=== PATIENT | male | born 1945 | race African-American/Black ===

== ENCOUNTER 2016-08-01 16:31 | Inpatient (IN) | payer MEDICARE, OTHER ==
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
--- NOTE | ~2016-08-01 | DS ---
Discharge Summary [facility] [address] [place]. [address] NAME: MARTY WATSON : 45 STATUS : DIS IN PAT#: [id number] AGE: 71 ADM/REG DATE : 08/01/16 MR#: [id number] REPORT SERV DATE: 08/07/16 DICTATED BY: VINNIE VASQUEZ DATE: 08/06/16 REPORT STATUS : Draft TRANSCRIBED BY: MODL DATE: 08/06/16 ADMISSION DATE: 08/01/2016 DISCHARGE DATE: HISTORY OF PRESENT ILLNESS: The patient is a 71-year-old. He will be discharged home on 08/07/2016. He was admitted with a Klebsiella pneumonia. DISCHARGE DIAGNOSES: 1. Urinary tract infection with sepsis only sensitive to IV antibiotics. 2. Closed head injury with a number of contractures of the lower and upper extremities. 3. The patient has a number of pressure ulcers, nonhealing/left hip, right hip, and right lateral malleolus. 4. Malnutrition. 5. He has a feeding tube. 6. Seizure disorder. HOSPITAL COURSE: The patient came in to receive IV antibiotics. On the second day, rapid response was called when the patient had a mucus plug. Once he was oxygenated and suctioned, his O2 saturation increased. Blood pressure returned. He was given IV fluids and support, and he remained on the floor. Had no other complications since then. His discharge medicines are his albuterol unit dose that he will receive twice a day and then every four as needed. MEDICINES: He is on Keppra 500 mg/teaspoon and he received 7.5 mg via his PEG three times a day; trazodone 100 mg at bedtime; MiraLAX 17 g a day; Tylenol as needed; baclofen 10 mg four times a day; latanoprost 0.005% one drop to the left eye daily for his glaucoma; lisinopril 5 a day; Ativan 1 mg at 0900 hours, 1300 hours, 1700 hours, and 2100 hours and 10 mg at bedtime; Protonix 40 mg via the PEG daily; Dilantin 125 mg/teaspoon before meals via the PEG three times a day; oxycodone 15 mg four times a day and 30 at midnight. Wound Care was consulted and he did have two wound VACs placed. Upon his discharge, the wound VACs will be removed and the continued [facility] who had him prior to admission will be picking him back up and will replace the wound VACs in the home. We will plan on making a visit to see him in a week. LABORATORY DATA: On 08/04/2016, BUN was 10, creatinine was 0.36, glucose 91, white blood cell count 8.1, H and H 27.9 and 9.2. TM/MODL Vinnie Vasquez M.D. Discharge Summary [address] [address] NAME: MARTY WATSON : 45 STATUS : DIS IN PAT#: [id number] AGE: 71 ADM/REG DATE : 08/01/16 MR#: [id number] REPORT SERV DATE: 08/07/16 DICTATED BY: VINNIE VASQUEZ DATE: 08/06/16 REPORT STATUS : Draft TRANSCRIBED BY: MODL DATE: 08/06/16 / [id number] CC: Vinnie Vasquez M.D.
[~2016-08-01 16:31] MED LIST: *UNABLE3; ACET500CAP PEG; AT25 PEG; ATV1 PEG; IODOSORB TOP; KEPPRAUDL PEG; LIOR10 PEG; LOP100 PEG; MIRALAXPKT PEG; MONODOX100 MG PO; MOTRIN IB200 MG PEG; NORV10 PO; NYS500UDL PEG; PB60 PEG; PHENYUDL PEG; PRIN5 PEG; PROTONIX PEG; PROVENTSOL INH; TRANSSCOP TOP; TRAZ100 PEG; ULTRAM50 PEG; XALAT OPH; ZANTAC 150 PEG; [UNRECOGNIZED DRUG - SUPPLY] TOP
[2016-08-01] MEDS ORDERED: PROTONIX PEG (17:36)
[2016-08-01] MEDS ORDERED: KEPPRAUDL PEG (17:36)
[2016-08-01] MEDS ORDERED: PHENY125S PEG (17:36)
[2016-08-01] MEDS ORDERED: ZESTRIL5 MG PEG (17:37)
[2016-08-01] MEDS ORDERED: LIOR10 PEG (17:37)
[2016-08-01] MEDS ORDERED: ROXICODONE30 MG PEG (17:38)
[2016-08-01] MEDS ORDERED: ATIVAN2 MG PEG (17:38)
[2016-08-01] MEDS ORDERED: ROXICODONE15 MG PEG (17:38)
[2016-08-01] MEDS ORDERED: ATV1 PEG (17:39)
[2016-08-01] MEDS ORDERED: MIRALAX POWDER1 PKT PEG (17:39)
[2016-08-01] MEDS ORDERED: ALBUTEROL0.083 % INH (17:40)
[2016-08-01] MEDS ORDERED: XALAT OPH (17:41)
[2016-08-01] MEDS ORDERED: TRAZ100 PEG (17:41)
[2016-08-01] MEDS ORDERED: 8 HOUR650 MG PEG (17:41)
[2016-08-02 05:14] LABS: BASOPHILS 0.9 %; BASOPHILS ABSOLUTE 0.06 10/3/uL (0.0-0.16); EOSINOPHILS 4.9 %; EOSINOPHILS ABSOLUTE 0.31 10/3/uL (0.0-0.53); HEMATOCRIT 26.8 % (40.0-51.0); IMMATURE GRANULOCYTES 0.2 %; IMMATURE GRANULOCYTES ABSOLUTE 0.01 10/3/uL (0.0-0.11); LYMPHOCYTES 34.9 %; LYMPHOCYTES ABSOLUTE 2.22 10/3/uL (0.67-4.30); MEAN CORPUS HGB CONC 33.6 g/dL (32.0-36.0); MEAN CORPUSCULAR HEMOGLOB 26.5 pg (26.0-34.0); MEAN CORPUSCULAR VOLUME 79.1 fL (80-100); MEAN PLATELET VOLUME 8.8 fL (9.2-13.0); MONOCYTES 11.1 %; MONOCYTES ABSOLUTE 0.71 10/3/uL (0.21-1.20); NEUTROPHILS ABSOLUTE 3.06 10/3/uL (2.02-8.40); RBC DISTRIBUTION WIDTH 16.7 % (12.0-16.0); RED CELL COUNT 3.39 10/6/uL (4.7-6.1); WHITE BLOOD CELLS 6.4 10/3/uL (4.5-10.5)
[2016-08-02 05:23] LABS: BUN (BLOOD UREA NITROGEN) 10 MG/DL (6-23); CALCIUM, SERUM 8.2 MG/DL (8.5-10.4); CHLORIDE, SERUM 97 MMOL/L (96-112); CO2 (CARBON DIOXIDE) 29 MMOL/L (24-34); CREATININE 0.34 MG/DL (0.70-1.30); GFR AFRICAN AMERICAN 148 ML/MIN (>=60); GFR NON AFRICAN AMERICAN 128 ML/MIN (>=60); GLUCOSE, SERUM 94 MG/DL (60-99); POTASSIUM, SERUM 3.8 MMOL/L (3.5-5.3)
[2016-08-02 05:24] LABS: SODIUM, SERUM 134 MMOL/L (135-148)
[2016-08-02 05:31] LABS: MANUAL DIFF NO %; PLATELET COUNT 431 10/3/uL (150-400)
[2016-08-03 05:19] LABS: BUN (BLOOD UREA NITROGEN) 11 MG/DL (6-23); CALCIUM, SERUM 8.6 MG/DL (8.5-10.4); CHLORIDE, SERUM 99 MMOL/L (96-112); CREATININE 0.32 MG/DL (0.70-1.30); GFR AFRICAN AMERICAN 152 ML/MIN (>=60); GFR NON AFRICAN AMERICAN 131 ML/MIN (>=60); GLUCOSE, SERUM 97 MG/DL (60-99); POTASSIUM, SERUM 4.2 MMOL/L (3.5-5.3); SODIUM, SERUM 133 MMOL/L (135-148)
[2016-08-03 05:20] LABS: CO2 (CARBON DIOXIDE) 24 MMOL/L (24-34)
[2016-08-04 05:56] LABS: BASOPHILS 0.4 %; BASOPHILS ABSOLUTE 0.03 10/3/uL (0.0-0.16); EOSINOPHILS 1.5 %; EOSINOPHILS ABSOLUTE 0.12 10/3/uL (0.0-0.53); HEMATOCRIT 27.9 % (40.0-51.0); HEMOGLOBIN 9.2 g/dL (13.6-17.8); LYMPHOCYTES 35.4 %; LYMPHOCYTES ABSOLUTE 2.88 10/3/uL (0.67-4.30); MEAN CORPUSCULAR HEMOGLOB 26.2 pg (26.0-34.0); MEAN CORPUSCULAR VOLUME 79.5 fL (80-100); MEAN PLATELET VOLUME 9.2 fL (9.2-13.0); MONOCYTES 16.5 %; MONOCYTES ABSOLUTE 1.34 10/3/uL (0.21-1.20); NEUTROPHILS 46.2 %; NEUTROPHILS ABSOLUTE 3.77 10/3/uL (2.02-8.40); PLATELET COUNT 468 10/3/uL (150-400); RBC DISTRIBUTION WIDTH 16.7 % (12.0-16.0); RED CELL COUNT 3.51 10/6/uL (4.7-6.1); WHITE BLOOD CELLS 8.1 10/3/uL (4.5-10.5)
[2016-08-04 06:05] LABS: MANUAL DIFF NO %
[2016-08-04 06:24] LABS: BUN (BLOOD UREA NITROGEN) 10 MG/DL (6-23); CALCIUM, SERUM 8.4 MG/DL (8.5-10.4); CHLORIDE, SERUM 98 MMOL/L (96-112); CO2 (CARBON DIOXIDE) 27 MMOL/L (24-34); CREATININE 0.36 MG/DL (0.70-1.30); GFR AFRICAN AMERICAN 145 ML/MIN (>=60); GFR NON AFRICAN AMERICAN 125 ML/MIN (>=60); GLUCOSE, SERUM 91 MG/DL (60-99); POTASSIUM, SERUM 3.8 MMOL/L (3.5-5.3); SODIUM, SERUM 135 MMOL/L (135-148)
[2016-08-07 05:19] LABS: BASOPHILS 0.5 %; BASOPHILS ABSOLUTE 0.05 10/3/uL (0.0-0.16); EOSINOPHILS 1.3 %; EOSINOPHILS ABSOLUTE 0.14 10/3/uL (0.0-0.53); HEMATOCRIT 24.3 % (40.0-51.0); HEMOGLOBIN 7.9 g/dL (13.6-17.8); IMMATURE GRANULOCYTES 0.3 %; IMMATURE GRANULOCYTES ABSOLUTE 0.03 10/3/uL (0.0-0.11); LYMPHOCYTES 18.3 %; LYMPHOCYTES ABSOLUTE 1.93 10/3/uL (0.67-4.30); MANUAL DIFF NO %; MEAN CORPUS HGB CONC 32.5 g/dL (32.0-36.0); MEAN CORPUSCULAR HEMOGLOB 26.1 pg (26.0-34.0); MEAN CORPUSCULAR VOLUME 80.2 fL (80-100); MEAN PLATELET VOLUME 8.6 fL (9.2-13.0); MONOCYTES ABSOLUTE 1.06 10/3/uL (0.21-1.20); NEUTROPHILS 69.6 %; NEUTROPHILS ABSOLUTE 7.35 10/3/uL (2.02-8.40); PLATELET COUNT 403 10/3/uL (150-400); RBC DISTRIBUTION WIDTH 16.3 % (12.0-16.0); RED CELL COUNT 3.03 10/6/uL (4.7-6.1); WHITE BLOOD CELLS 10.6 10/3/uL (4.5-10.5)
[2016-08-07 05:34] LABS: CALCIUM, SERUM 8.2 MG/DL (8.5-10.4); CHLORIDE, SERUM 102 MMOL/L (96-112); CO2 (CARBON DIOXIDE) 29 MMOL/L (24-34); GFR AFRICAN AMERICAN 139 ML/MIN (>=60); GFR NON AFRICAN AMERICAN 120 ML/MIN (>=60); POTASSIUM, SERUM 3.4 MMOL/L (3.5-5.3); SODIUM, SERUM 139 MMOL/L (135-148)
[2016-08-07 05:40] LABS: BUN (BLOOD UREA NITROGEN) 6 MG/DL (6-23); GLUCOSE, SERUM 119 MG/DL (60-99)
== END 2016-08-07 16:15 | disposition home health service (06) | DRG 871 ==
LOC: 4EA 16:31
PROVIDERS: Internal Medicine Geriatric Medicine
DX: A41.9 Sepsis, unspecified organism (principal); L89.214 Pressure ulcer of right hip, stage 4; E44.0 Moderate protein-calorie malnutrition; S09.8XXA Other specified injuries of head, initial encounter; L89.224 Pressure ulcer of left hip, stage 4; N39.0 Urinary tract infection, site not specified; Z93.1 Gastrostomy status; R13.10 Dysphagia, unspecified; G40.909 Epilepsy, unspecified, not intractable, without status epilepticus; Z68.1 Body mass index [BMI] 19.9 or less, adult; B96.1 Klebsiella pneumoniae [K. pneumoniae] as the cause of diseases classified elsewhere
CPT/HCPCS: 36600; 74230; 80048; 80170; 82330; 82803; 82947; 84132; 84295; 85014; 85025; 92611-GN; 94640; A9270-GY; C9113; G8996-CN-GN; G8997-CN-GN; G8998-CN-GN; J1580

== ENCOUNTER 2016-08-29 22:44 | Inpatient (IN) | payer MEDICARE, OTHER ==
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
--- NOTE | ~2016-08-29 | OP ---
Record Of Operation [facility] [address] [place]. [address] NAME: MARTY WATSON : 45 STATUS : ADM IN [facility]#: [id number] AGE: 71 ADM/REG DATE : 08/30/16 MR#: [id number] REPORT SERV DATE: 08/30/16 DICTATED BY: KEVIN QUEVEDO DATE: 08/30/16 REPORT STATUS : Draft TRANSCRIBED BY: MODL DATE: 08/30/16 DATE OF PROCEDURE: 08/29/2016 PROCEDURE: Central line placement. INDICATION: Hypotensive shock and septic shock. ANESTHETIC: 1% lidocaine. ANTISEPTIC: ChloraPrep. PROCEDURE IN DETAIL: The patient is a severely ill 71-year-old cachectic male, who is wasted with failure to thrive, presented here with septic shock. Family states they want everything done and the patient is a full code. The patient is extremely hypotensive; multiple attempts failed to obtain peripheral IV access. I was asked to place a central line, where I was forced to place a central line. Selected his right subclavian as the initial site for placement given the patient has extreme cachexia, this is difficult and high risk. This area was accessed with a good blood flow to the right subclavian vein. However, every time the patient would have a respiration, blood flow would cease. I was unable to thread the guidewire here I think due to the patient's extreme cachectic physique as well as volume status. Given the difficulty of threading the guidewire here, right IJ was selected as a site of insertion. The internal jugular was actually visible during respirations of the patient. When the patient inspired, his right IJ would disappear. When he had expiratory portion of restorations, the right IJ would appear during expiratory respiration, the right IJ was cannulated with the finer needle with good nonpulsatile blood flow. However, is unable to thread the guidewire and a second attempt was made with a good nonpulsatile blood flow. The guidewire threaded with ease and using Seldinger technique, the line was advanced to [address] with two simple sutures and sterile dressing was then applied and sterile drape was removed. No immediate complications arose. No air aspiration during this, however, postop chest x-ray revealed a moderate size right pneumothorax. No chest x-ray done prior, so my suspicion is this is iatrogenic although the patient does have tenuous respiratory status with hypertension and some hypoxia on admission, so it is possible that this pneumothorax was present on admission. Once the pneumothorax was realized, a right pneumothorax was placed with resolution of the pneumothorax on post chest x-ray. See procedure detail for chest tube placement for full details of this procedure. NIMISHA/JOVAN Kevin Quevedo DO / [id number] Record Of Operation [address] [address] NAME: MARTY WATSON : 45 STATUS : ADM IN [facility]#: [id number] AGE: 71 ADM/REG DATE : 08/30/16 MR#: [id number] REPORT SERV DATE: 08/30/16 DICTATED BY: KEVIN QUEVEDO DATE: 08/30/16 REPORT STATUS : Draft TRANSCRIBED BY: JOVAN DATE: 08/30/16 CC: Jas Farrell MD
--- NOTE | ~2016-08-29 | HP ---
History And Physical [place] [id number] [facility] [place]. [address] NAME: MARTY WATSON : 45 STATUS : ADM IN [facility]#: [id number] AGE: 71 ADM/REG DATE : 08/30/16 MR#: [id number] REPORT SERV DATE: 08/30/16 DICTATED BY: SANTINO YANES DATE: 08/30/16 REPORT STATUS : Draft TRANSCRIBED BY: JOVAN DATE: 08/30/16 DATE OF ADMISSION: 08/30/2016 CHIEF COMPLAINT: Not himself. 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 The patient was recently in the hospital in 07/2016 with recurrent urinary tract infection, as well as Klebsiella pneumonia. At that time, he had a wound VAC placed for his decubitus ulcer and he was discharged home toward the end of July. Since that time, per the niece, he has done well and has been at his baseline at home. She states that his baseline consists of some grunts and moans as attempts to communicate, but otherwise that is his neurologic baseline. She notes that over the last couple of days, she has noticed an increase in the amount of secretions that he has had and she has had to suction him quite frequently. Normally, she says he is able to cough and has a strong cough, and is able to produce the sputum. However, over the last couple of days, she says cough has been very weak and he has been unable to clear secretions without the help of her frequent suctioning. She notes that he seems to be generally more weak over the last couple of days as well. She has not noted any fevers, chills, or sweats. She has not noticed any other changes. On arrival here to the emergency room, he was found to be hypotensive despite IV fluids and had to have vasopressor started in the emergency room. During central line placement, he developed an iatrogenic pneumothorax and had a chest tube placed as well. He is now admitted to the ICU for further management. PAST MEDICAL HISTORY: 1. 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 2. Seizure disorder. 3. Hypertension. 4. History of recurrent urinary tract infections. 5. Glaucoma. 6. Status post G-tube placement. 7. History of chronic decubitus ulcers. ALLERGIES: NO KNOWN DRUG ALLERGIES. HOME MEDICATIONS: 1. Keppra 750 mg p.o. three times daily. 2. Dilantin 500 mg three times daily. 3. Ativan 2 mg daily as needed. 4. Ativan 1 mg p.o. four times daily. 5. Roxicodone 15 mg p.o. five times a day as needed. 6. Protonix 40 mg p.o. twice daily. 7. Lisinopril 5 mg p.o. daily. 8. Baclofen 10 mg p.o. four times daily. History And Physical [address] [address] NAME: MARTY WATSON : 45 STATUS : ADM IN [facility]#: [id number] AGE: 71 ADM/REG DATE : 08/30/16 MR#: [id number] REPORT SERV DATE: 08/30/16 DICTATED BY: SANTINO YANES DATE: 08/30/16 REPORT STATUS : Draft TRANSCRIBED BY: JOVAN DATE: 08/30/16 9. Tylenol 325 mg twice daily as needed. SOCIAL HISTORY: Lives with his niece, who is his power of managing attorney. No tobacco, alcohol, or IV drug abuse. FAMILY HISTORY: Per the niece, negative for coronary artery disease. REVIEW OF SYSTEMS: A 10-point review of systems is negative except as mentioned in the HPI. PHYSICAL EXAMINATION: VITAL SIGNS: Temperature 95.4, heart rate 88, respiratory rate 24, blood pressure 92/52. GENERAL: Elderly chronically ill-appearing gentleman. HEENT: Pupils equal, round, and reactive to light. Extraocular movements intact. Oropharynx clear. Dry mucous membranes. NECK: Supple. Nontender. No lymphadenopathy. No thyromegaly. No jugular venous distention. LUNGS: Coarse breath sounds bilaterally. CARDIOVASCULAR: Regular rate and rhythm. No murmurs, rubs, or gallops. ABDOMEN: Soft, nontender, nondistended. Positive bowel sounds. No hepatosplenomegaly. EXTREMITIES: Cachectic. No cyanosis, clubbing, or edema. NEURO: Minimally responsive. Moans at times. Otherwise, cranial nerves appear intact. PSYCH: Unable to assess. LABS AND IMAGING: Urinalysis with large leukocyte esterase, 68 white blood cells, many bacteria. Lactate 1.4. CBC with white count of 47,000 with 97% neutrophils. Blood gas with pH of 7.35, pCO2 of 58, PO2 of 47 on 100% FiO2. Metabolic profile, remarkable for procalcitonin of 1.1. Sodium of 129, chloride of 91, BUN of 38, creatinine of 0.8. 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 1. Acute hypoxic respiratory failure. Shortly after arrival to the ICU, the patient's respiratory status continued to decline. His oxygenation worsened and he was requiring a nonrebreather 100% and only had a PO2 of 47 on this. Given this and his inability to protect his airway and clear his secretions, I elected to go ahead and intubate the patient and place him on mechanical ventilation. See handwritten intubation note in the patient's record. I will continue ventilator management. We will get a postintubation ABG and titrate his ventilator as appropriate. We will also get a followup chest x-ray following intubation. We will use Precedex and fentanyl as needed for sedation and analgesia. While on the ventilator, we will provide daily awakening trials. 2. Pneumonia, likely either aspiration pneumonia versus hospital-acquired pneumonia given his recent hospitalization. Empirically, I will place him on vancomycin and Zosyn. We will get a sputum culture as well as blood cultures x2. We will tailor his antibiotics appropriately based on his sputum culture. History And Physical [address] [place]. [address] NAME: MARTY WATSON : 45 STATUS : ADM IN [facility]#: [id number] AGE: 71 ADM/REG DATE : 08/30/16 MR#: [id number] REPORT SERV DATE: 08/30/16 DICTATED BY: SANTINO YANES DATE: 08/30/16 REPORT STATUS : Draft TRANSCRIBED BY: MODL DATE: 08/30/16 3. Septic shock. Currently, the patient is requiring Levophed drip. I will add a vasopressin drip in an attempt to decrease his Levophed dose and we will also provide more IV fluid hydration, as the patient appears to be intravascularly volume depleted. Continue antibiotics as above. Repeat lactic acid level in the morning. 4. Iatrogenic pneumothorax. The patient's lung was reexpanded following chest tube placement. We will follow up postintubation chest x-ray, keep chest tube to suction for now, and monitor for resolution of pneumothorax. 5. History of seizures. We will continue the patient's home Keppra. 6. Chronic decubitus ulcer. We will continue wound VAC and get Wound Care to see the patient. 7. The patient remains full code. 8. The patient is on heparin for deep vein thrombosis prophylaxis and Protonix for gastrointestinal prophylaxis. Total critical care time spent on this patient not including endotracheal intubation was 40 minutes. ROSENDA/JOVAN Santino Yanes MD / [id number] CC: Santino Yanes MD
--- NOTE | ~2016-08-29 | DS ---
Discharge Summary [facility] [address] [place] [place]. [address] NAME: MARTY WATSON : 45 STATUS : DIS IN PAT#: [id number] AGE: 71 ADM/REG DATE : 08/30/16 MR#: [id number] REPORT SERV DATE: 10/10/16 DICTATED BY: VINNIE TAM DATE: 10/01/16 REPORT STATUS : Draft TRANSCRIBED BY: MODL DATE: 10/01/16 Data Collection from hospitalization DISCHARGE DIAGNOSES: 1. Respiratory failure requiring intubation. 2. Sepsis. 3. Stage IV pressure ulcer. 4. Malnutrition. 5. Contractures. 6. Seizures. 7. Left lower lobe pneumonia. 8. Pneumothorax, resolved. 9. Hypomagnesemia and hypophosphatemia, resolved. 10.Septic shock secondary to pneumonia. 11.Anemia. 12.History of hypertension. 13.Multidrug resistant Klebsiella urinary tract infection. 14.Encephalopathy. 15.Traumatic brain injury. 16.Multiple sacral decubital wounds. CONSULTANTS: Dr. Manny Bains, Dr. Hair Flanagan, Dr. Vinnie Tam, Dr. Abdoul Carty, Dr. Rupa Rowe, Dr. Jay Trivedi. PROCEDURES PERFORMED: 1. Central line placement, 08/29/2016. 2. Chest tube placement, 08/30/2016. 3. Electroencephalogram, 09/05/2016. 4. CT of the abdomen without contrast, 09/12/2016. 5. Gastrostomy tube placement, 09/12/2016. MEDICATIONS: Iodosorb gel apply as directed, Keppra 750 mg every 8 hours, Protonix 40 mg twice daily, Dilantin 100 mg three times a day, DuoNeb 3 mL INH every 4 hours, albuterol one nebulizer INH 3 times daily as needed. CONDITION AT DISCHARGE: Upon discharge, he was afebrile and his vital signs were stable. His eyes were open; however, he could not make his needs known. DISPOSITION: He had been discharged home with home health. He was on tube feedings with Jevity 1.2 as directed. He was to follow up as directed with Dr. Vinnie Tam. 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 He was brought to the emergency room by his niece whom he lives with at home and is his caregiver. He was recently in the hospital in July of 2016 with recurrent urinary tract infection as well as Klebsiella pneumoniae. At that time, he had a wound VAC placed for his decubitus ulcer and he was discharged home toward the end of July. Since that time, per the niece, he had done well and had been at his baseline at home. She stated Discharge Summary [place] [id number] [facility] [place]. [address] NAME: MARTY WATSON : 45 STATUS : DIS IN PAT#: [id number] AGE: 71 ADM/REG DATE : 08/30/16 MR#: [id number] REPORT SERV DATE: 10/10/16 DICTATED BY: VINNIE TAM DATE: 10/01/16 REPORT STATUS : Draft TRANSCRIBED BY: JOVAN DATE: 10/01/16 that his baseline consist of some grunts and moans as attempts to communicate, but otherwise that is his neurologic baseline. She noted that over the last couple of days she had noticed an increase in the amount of secretions that he had and she had to suction them quite frequently. Normally, she said that he was able to cough and had a strong cough and was able to produce the sputum. However, over the last couple of days, she said his cough had been very weak and he had been unable to clear secretions without the help of her frequent suctioning. She had noted that he seemed to be generally more weak over the last couple of days as well. She had not noted any fever, chills, or sweats. She had not noticed any other change. On arrival here at the hospital in the emergency room, he was found to be hypotensive despite IV fluids and had to have vasopressors started in the emergency room during central line placement. He had developed an iatrogenic pneumothorax and had a chest tube placed as well. He was admitted to the intensive care unit for further management. Upon admission to the hospital, he had been placed on Levophed drip. He was begun on bronchodilators per protocol upon admission. Following the day of admission, he had been seen by Dr. Abdoul Carty who had noted this patient was extremely thin and frail and he was noted to have a cough, however had no other response at that time. He was afebrile and his vital signs were stable. His chest x-ray did reveal some improvement from the previous day. His albumin was at 1.5. He was continued on his current medications. His hemoglobin was at 7.1, hematocrit 21.0. On 09/01/2016, he was still minimally responsive but did still have a cough. His hemoglobin had dropped to 6.8, hematocrit 20.2, and he did undergo transfusion. He was continued on supportive care and was still in the intensive care unit. On 09/02/2016, he was continued on his current medications and was continued on supportive care. Stool had been checked for Clostridium difficile and was noted to have been negative. On 09/03/2016, he remained only minimally responsive but did still have a cough present. His hemoglobin post transfusion was up to 8.1, hematocrit was at 24.3, he was continued on his current medications. He had been found to have Klebsiella in his urine. This was determined to be multi-drug resistant and he was felt to have sepsis with shock. He was however taken off pressors on 09/04/2016 secondary to his sepsis. He was then seen in consultation by Dr. Hair Flanagan for antibiotic management in regard to the multi-drug resistant Klebsiella urinary tract infection and he felt the patient appeared to be better at least in regard to his blood pressure, temperature, and white blood cell count with the treatment of vancomycin and Zosyn. Followed by vancomycin and aztreonam as he had improved clinically without specific treatment for this bacteria, he felt that it might just be a colonizer and thus it had been explained to the patient's family. His sputum culture was noted to have grown MRSA grade B strep and Pseudomonas with high MICs to aztreonam, Zosyn, and cefepime. He had been placed instead on meropenem for the time being and he was to have a followup lung infiltrate and followup procalcitonin. On 09/05/2016, the patient's weight was cachectic, contracted and unresponsive. He was noted to have had a temperature up to 100.1 and his vital signs were stable. His hemoglobin was at 8.3, hematocrit 25.5, WBCs were at 7.5, magnesium was at 1.7. He was continued on antibiotics. It was felt that he needed ethics involvement to determine his level of care. He had also been seen on 09/05/[address] Manny Bains for neurological evaluation in regard to his seizure activity and was recommended he undergo an electroencephalogram and his Dilantin was increased to 125 mg per the PEG tube 3 times daily, and he was also to continue with Keppra. He did undergo the above EEG. He had also been seen by ethics committee, as there were questions regarding the futility and code status and concerns about the patient's decision maker. He was noted to have eye opening to noxious stimuli and his pupils did appear to be reactive. On Discharge Summary [address] [place]. [address] NAME: MARTY WATSON : 45 STATUS : DIS IN PAT#: [id number] AGE: 71 ADM/REG DATE : 08/30/16 MR#: [id number] REPORT SERV DATE: 10/10/16 DICTATED BY: VINNIE TAM DATE: 10/01/16 REPORT STATUS : Draft TRANSCRIBED BY: MODShravan DATE: 10/01/16 09/06/2016, the patient did appear to be more responsive. He was afebrile and his vital signs were stable. He was continued on his current medications. He was also continued on his current antibiotics. He did undergo PICC line change as per Dr. Flanagan's request. On 09/07/2016, he was afebrile and his vital signs had remained stable. He was continued on his current medications and supportive care. He had been seen by palliative care. Chest x- ray was done and revealed no pneumothorax. He was continued on supportive care throughout the next few days and had no new complaints noted. He was not noted to be communicated and was felt to be at his baseline. He had been extubated. He did remain in stable condition throughout the next few days and had continued without change. He did remain afebrile. On 09/12/2016, he did undergo a CT of the abdomen without contrast and did also undergo a percutaneous gastrostomy tube placement. He did tolerate both procedures well, and discharge planning was begun. He continued without change and was then discharged on 09/14/2016 with the above instructions. Information collected by: Viktor BaltazarIAndieT. I submit the above information as my discharge summary. ISABEL/JOVAN Vinnie Tam M.D. / [id number] CC: Stacey Rowland MD Paul Cornea, M.D.
--- NOTE | ~2016-08-29 | OP ---
Record Of Operation [facility] [address] [place]. [address] NAME: MARTY WATSON : 45 STATUS : ADM IN [facility]#: [id number] AGE: 71 ADM/REG DATE : 08/30/16 MR#: [id number] REPORT SERV DATE: 08/30/16 DICTATED BY: KEVIN QUEVEDO DATE: 08/30/16 REPORT STATUS : Draft TRANSCRIBED BY: MODL DATE: 08/30/16 DATE OF PROCEDURE: 08/30/2016 PROCEDURE: Chest tube placement. INDICATION: Right pneumothorax. ANTISEPTIC: ChloraPrep. ANESTHETIC: Lidocaine. PROCEDURE IN DETAIL: The patient was post right subclavian line placement with post line placement chest x-ray showing right pneumothorax. Using a PneumoDart kit, the T8 rib space was cannulated with a PneumoDart and advanced into pleural cavity until air was aspirated and then advanced upward and posteriorly and then hooked to water seal suctioning with good air flow and bubbling and tube fogging the patient. The chest tube was then sutured in place, and a sterile occlusive dressing was applied. The patient tolerated the procedure well. Post-procedure chest x-ray showed good inflation of the right lung. CONY Kevin Quevedo DO / [id number] CC: Jas Farrell MD
--- NOTE | ~2016-08-29 | CN ---
Consultation Report [facility] [address] [place]. [address] NAME: MARTY WATSON : 45 STATUS : ADM IN PAT#: [id number] AGE: 71 ADM/REG DATE : 08/30/16 MR#: [id number] REPORT SERV DATE: 09/06/16 DICTATED BY: DATE: REPORT STATUS : Draft TRANSCRIBED BY: MODL DATE: 09/05/16 NEUROLOGY CONSULTATION DATE OF CONSULTATION: 09/05/2016 REASON FOR CONSULT: Seizure activity. HISTORY OF PRESENT ILLNESS: This is a 71-year-old male who presented to [facility] on 08/30/2016 secondary to worsening mental status as well as respiratory distress. The patient was subsequently intubated and sent to the intensive care unit. Patient at baseline was noted to have a traumatic brain injury as well as a closed head injury with the patient's baseline mental status apparently consists of grunts for communication as well as coughing. The patient was otherwise bedbound and was noted to have decubitus ulcer as well as a wound VAC. The patient over the past several days prior to hospitalization was noted to have decreased cough as well as decreased ability to clear secretion. In addition, the patient was also noted to have decreased normal communications with the patient's family members. As a result, the patient was brought to the emergency room for evaluation. Since the hospitalization, the patient was noted to be unresponsive, was noted to have episodes of head extension with rhythmic eye movement as well as oxygen desaturation during those episodes. The patient was noted to have those episodes fairly frequently throughout the night. The patient at baseline does have reported seizure disorder and was on Dilantin as well as Keppra and Ativan. The patient also was noted to be febrile during the hospitalization. PAST MEDICAL HISTORY: Significant for traumatic brain injury due to closed head injury with the patient at baseline noted to be bedbound, was noted to have contracture, decubitus ulcer, as well as noted to have minimal communication with the patient mostly grunts to communicate, but at baseline is able to cough and clear secretion prior to the hospital stay. Patient was noted to have a history of seizure disorder, on Dilantin as well as Keppra and Ativan at home. Patient was noted to have a history of hypertension, recurrent urinary tract infection, status post G-tube placement, decubitus ulcer with wound VAC, and history of glaucoma. ALLERGIES: THE PATIENT REPORTS NO KNOWN DRUG ALLERGIES. HOME MEDICATIONS: Consist of Ativan, Keppra, Dilantin, Roxicodone, Protonix, lisinopril, baclofen, and Tylenol. SOCIAL HISTORY: No current tobacco, alcohol, or recreational drug usage. FAMILY HISTORY: Negative for coronary artery disease. REVIEW OF SYSTEMS: Unable to be obtained due to the patient's mental status. Consultation Report [address] [place]. [address] NAME: MARTY WATSON : 45 STATUS : ADM IN PAT#: [id number] AGE: 71 ADM/REG DATE : 08/30/16 MR#: [id number] REPORT SERV DATE: 09/06/16 DICTATED BY: DATE: REPORT STATUS : Draft TRANSCRIBED BY: JOVAN DATE: 09/05/16 PHYSICAL EXAMINATION: VITAL SIGNS: At the time of evaluation, patient was noted to have vital signs with T-max of 101.5, heart rates of 91-117, respirations of 10-28, and blood pressures of 111-158 over 61- 89. GENERAL: The patient is well developed, well nourished, in no acute distress. CARDIOVASCULAR: Regular rate and rhythm. No carotid bruits were otherwise auscultated. PULMONARY: Clear to auscultation bilaterally. NEUROLOGICAL EXAMINATION: Generally, the patient is intubated. No verbal response was noted. Not following commands. Cranial nerves 2 through 12, pupils appeared to be reactive bilaterally. No clear horizontal eye movement was noted, but was noted to have blink to threat response as well as corneal reflex. No clear gag reflex was otherwise noted. The patient demonstrated no clear grimace or withdrawal to noxious stimulation in bilateral jaws and bilateral upper and lower extremity with the patient noted to have increased muscle tone as well as contracture in bilateral upper and bilateral lower extremity. Hyperreflexia throughout. Gait and cerebellar examination was not able to be performed secondary to the patient's baseline mental status as well as clinical status. LABORATORY DATA: Laboratory studies demonstrated white blood cell count of 7.5, hemoglobin of 8.3, hematocrit 25.5, platelet count of 420. Procalcitonin level was 0.45. Sodium of 143, potassium of 4.1, chloride 111, bicarb of 27, BUN of 7, creatinine of 0.34, glucose of 99, calcium of 7.7, magnesium of 1.7. No neuro imaging was otherwise obtained. IMPRESSION: Seizure, intractable, with episodes of head extension as well as rhythmic eye movement as well as O2 desaturation. During the episodes, the patient was noted to have subtherapeutic Dilantin level of around 7. We will increase Dilantin to 125 mg per PEG tube t.i.d. We will continue Keppra for now and we will obtain EEG study. RECOMMENDATIONS: 1. EEG. 2. Increase Dilantin to 125 mg per PEG tube t.i.d. 3. Continue Keppra. [facility]/MODL Manny Bains MD / [id number] CC: Consultation Report [address] [place] [address] NAME: MARTY WATSON : 45 STATUS : ADM IN [facility]#: [id number] AGE: 71 ADM/REG DATE : 08/30/16 MR#: [id number] REPORT SERV DATE: 09/06/16 DICTATED BY: DATE: REPORT STATUS : Draft TRANSCRIBED BY: MODL DATE: 09/05/16 Jas Farrell MD
--- NOTE | ~2016-08-29 | EEG ---
Electroencephalogram [facility] [address] [place]. [address] NAME: MARTY WATSON : 45 STATUS : ADM IN [facility]#: [id number] AGE: 71 ADM/REG DATE : 08/30/16 MR#: [id number] REPORT SERV DATE: 09/06/16 DICTATED BY: DATE: REPORT STATUS : Draft TRANSCRIBED BY: MODL DATE: 09/05/16 NEUROLOGY EEG REPORT CLINICAL INDICATIONS: Comatose state, seizure. DESCRIPTION: This EEG was performed using 10/20 electrode placement system. During the EEG study, symmetric background activity with attenuated background was seen. Generalized slowing was noted throughout the EEG study. Predominant occipital rhythm is roughly 6 hertz. Photic stimulation was performed. No driving response was seen. Hyperventilation was not performed secondary to the patient's underlying medical condition as well as intubated status. No focal abnormalities, seizure activity, or seizure discharge was otherwise noted. The patient demonstrated no clinical seizure during the EEG study. The patient remains in comatose state during the entire EEG study. INTERPRETATION: This EEG study obtained entirely during comatose state may be considered mildly abnormal secondary to presence of 1. Attenuated background as well as. 2. Mild generalized slowing. No focal abnormalities, seizure activity, seizure discharge, or clinical seizure event was captured during the EEG study. Clinical correlation is recommended. [facility]/JOVAN Manny Bains MD / [id number] CC: Jas Farrell MD
[~2016-08-29 22:44] MED LIST changes: +8 HOUR650 MG PEG; +ALBUTEROL0.083 % INH; +ATIVAN2 MG PEG; +MIRALAX POWDER1 PKT PEG; +PHENY125S PEG; +ROXICODONE15 MG PEG; +ROXICODONE30 MG PEG; +ZESTRIL5 MG PEG
[2016-08-29] MEDS ORDERED: PHENY125S PO (22:47)
[2016-08-29] MEDS ORDERED: KEPPRAUDL PO (22:47)
[2016-08-29] MEDS ORDERED: ATIVAN2 MG PO (22:47)
[2016-08-29] MEDS ORDERED: ATV1 PO (22:47)
[2016-08-29] MEDS ORDERED: PRIN5 PO (22:48)
[2016-08-29] MEDS ORDERED: ROXICODONE15 MG PO (22:48)
[2016-08-29] MEDS ORDERED: LIOR10 PO (22:48)
[2016-08-29] MEDS ORDERED: PROTONIX PO (22:48)
[2016-08-29] MEDS ORDERED: XALAT OPH (22:49)
[2016-08-29] MEDS ORDERED: ALBUTEROL0.083 % INH (22:51)
[2016-08-29] MEDS ORDERED: T PO (22:51)
[2016-08-29 23:12] LABS: BASOPHILS 0.1 %; BASOPHILS ABSOLUTE 0.03 10/3/uL (0.0-0.16); EOSINOPHILS 0 %; HEMOGLOBIN 9.3 g/dL (13.6-17.8); IMMATURE GRANULOCYTES 0.8 %; IMMATURE GRANULOCYTES ABSOLUTE 0.36 10/3/uL (0.0-0.11); LYMPHOCYTES 0.7 %; LYMPHOCYTES ABSOLUTE 0.34 10/3/uL (0.67-4.30); MEAN CORPUS HGB CONC 34.1 g/dL (32.0-36.0); MEAN CORPUSCULAR VOLUME 79.1 fL (80-100); MEAN PLATELET VOLUME 9.1 fL (9.2-13.0); MONOCYTES 2.9 %; MONOCYTES ABSOLUTE 1.38 10/3/uL (0.21-1.20); NEUTROPHILS 95.5 %; NEUTROPHILS ABSOLUTE 45.09 10/3/uL (2.02-8.40); PLATELET COUNT 421 10/3/uL (150-400); RBC DISTRIBUTION WIDTH 16.1 % (12.0-16.0); RED CELL COUNT 3.45 10/6/uL (4.7-6.1)
[2016-08-29 23:13] LABS: HEMATOCRIT 27.3 % (40.0-51.0); WHITE BLOOD CELLS 47.2 10/3/uL (4.5-10.5)
[2016-08-29 23:15] LABS: MANUAL DIFF NO %
[2016-08-29 23:22] LABS: INTERNATIONAL NORMAL RATI 1.7 UNITS (-); PROTIME (NOT ORD) 19.6 SEC (12.0-14.5)
[2016-08-29 23:23] LABS: PARTIAL THROMBO TIME 44.6 SEC (22.5-37.2)
[2016-08-29 23:24] LABS: ASCORBIC ACID (UR NOT ORDER) NEG (NEG); BILIRUBIN, URINE NEGATIVE (NEG); ER URINALYSIS TAT 0 Hrs 10 Mins; KETONE, URINE NEGATIVE (NEG); LEUKOCYTE ESTERASE(NOT OR LARGE (NEG); NITRITE (URINE) NEG (NEG); WBC (NOT ORDERED) (RFLEX) 68 (0-5)
[2016-08-29 23:30] LABS: CALCIUM, SERUM 8.7 MG/DL (8.5-10.4); CO2 (CARBON DIOXIDE) 33 MMOL/L (24-34); CREATININE 0.84 MG/DL (0.70-1.30); GFR AFRICAN AMERICAN 102 ML/MIN (>=60); GFR NON AFRICAN AMERICAN 88 ML/MIN (>=60); SGOT(AST) 59 U/L (5-40); SGPT(ALT) 50 U/L (5-65); TOTAL PROTEIN 7.1 G/DL (6.0-8.5)
[2016-08-29 23:31] LABS: LACTATE 1.4 MMOL/L (0.3-2.4)
[2016-08-29 23:32] LABS: A/G RATIO 0.3 (0.7-1.9); ALBUMIN 1.5 G/DL (3.5-5.0); ALKALINE PHOSPHATASE 216 U/L (45-117); BUN (BLOOD UREA NITROGEN) 38 MG/DL (6-23); CHLORIDE, SERUM 91 MMOL/L (96-112); GLOBULIN 5.6 G/DL (2.5-4.1); GLUCOSE, SERUM 71 MG/DL (60-99); POTASSIUM, SERUM 4.9 MMOL/L (3.5-5.3); SODIUM, SERUM 129 MMOL/L (135-148); TOTAL BILIRUBIN 0.5 MG/DL (0-1.2)
[2016-08-29 23:43] LABS: BAND NEUTROPHILS 12 %; ER DIFF TAT 0 Hrs 36 Mins; LYMPHOCYTES 1 %; LYMPHOCYTES ABSOLUTE (CALC) 0.47 10/3/uL (0.67-4.30); MONOCYTES 1 %; MONOCYTES ABSOLUTE (CALC) 0.47 10/3/uL (0.21-1.20); NEUTROPHILS ABSOLUTE (CALC) 46.26 10/3/uL (2.02-8.40); PLATELET ESTIMATE SLT INC (ADEQUATE); SEGMENTED NEUTROPHIL (0) 86 %; TOTAL NUCLEATED CELLS 100
[2016-08-29 23:44] LABS: RBC MORPHOLOGY NORM (NORMAL)
[2016-08-29 23:54] LABS: BE (BASE EXCESS) 1.8 MEQ/L (0 +/- 2.5); CARBOXYHEMOGLOBIN 1.2 % (0-3); HCO3 (ACTUAL BICARBONATE) 27.1 MEQ/L (23-27); HEMOBLOGIN CONTENT 9.4 G/DL (14-18); INSTRUMENT SERIAL # 8087; METHEMOGLOBIN 0.4 % (0-3); O2 CONTENT 10.8 VOL% (18-24); PCO2 (CO2 TENSION) 46 MMHG (35-45); PO2 (O2 TENSION) 52 MMHG (79-93); SAMPLE Arterial; pH 7.39 (7.37-7.43)
[2016-08-30 00:01] LABS: PROCALCITONIN 1.16 ng/mL (<0.5)
[2016-08-30 02:05] LABS: BE (BASE EXCESS) 4.1 MEQ/L (0 +/- 2.5); CARBOXYHEMOGLOBIN 0.1 % (0-3); HCO3 (ACTUAL BICARBONATE) 30.8 MEQ/L (23-27); HEMOBLOGIN CONTENT 10.3 G/DL (14-18); INSTRUMENT SERIAL # 35151; METHEMOGLOBIN 0.6 % (0-3); O2 CONTENT 11.2 VOL% (18-24); OPERATOR ID 33449; PCO2 (CO2 TENSION) 58 MMHG (35-45); PO2 (O2 TENSION) 47 MMHG (79-93); SAMPLE Arterial; pH 7.35 (7.37-7.43)
[2016-08-30 02:06] LABS: ALLENS TEST Pos; DEVICE NRB
[2016-08-30 04:49] LABS: HEMATOCRIT 25.9 % (40.0-51.0); HEMOGLOBIN 8.6 g/dL (13.6-17.8); MEAN CORPUS HGB CONC 33.2 g/dL (32.0-36.0); MEAN CORPUSCULAR HEMOGLOB 26.3 pg (26.0-34.0); MEAN CORPUSCULAR VOLUME 79.2 fL (80-100); MEAN PLATELET VOLUME 9.2 fL (9.2-13.0); PLATELET COUNT 466 10/3/uL (150-400); RBC DISTRIBUTION WIDTH 15.9 % (12.0-16.0); RED CELL COUNT 3.27 10/6/uL (4.7-6.1)
[2016-08-30 04:50] LABS: WHITE BLOOD CELLS 52.8 10/3/uL (4.5-10.5)
[2016-08-30 04:51] LABS: MANUAL DIFF YES %
[2016-08-30 05:03] LABS: A/G RATIO 0.3 (0.7-1.9); ALBUMIN 1.5 G/DL (3.5-5.0); ALKALINE PHOSPHATASE 213 U/L (45-117); BUN (BLOOD UREA NITROGEN) 38 MG/DL (6-23); CALCIUM, SERUM 8.3 MG/DL (8.5-10.4); CHLORIDE, SERUM 93 MMOL/L (96-112); GFR AFRICAN AMERICAN 104 ML/MIN (>=60); GFR NON AFRICAN AMERICAN 90 ML/MIN (>=60); GLOBULIN 5.4 G/DL (2.5-4.1); PREALBUMIN 5.1 MG/DL (17.0-43.0); SGOT(AST) 84 U/L (5-40); SGPT(ALT) 60 U/L (5-65); SODIUM, SERUM 131 MMOL/L (135-148); TOTAL BILIRUBIN 0.7 MG/DL (0-1.2); TOTAL PROTEIN 6.9 G/DL (6.0-8.5)
[2016-08-30 05:05] LABS: CO2 (CARBON DIOXIDE) 28 MMOL/L (24-34); GLUCOSE, SERUM 142 MG/DL (60-99); PHOSPHORUS, SERUM 4.9 MG/DL (2.5-4.5)
[2016-08-30 05:11] LABS: BAND NEUTROPHILS 15 %; LYMPHOCYTES 1 %; LYMPHOCYTES ABSOLUTE (CALC) 0.53 10/3/uL (0.67-4.30); MONOCYTES 3 %; MONOCYTES ABSOLUTE (CALC) 1.58 10/3/uL (0.21-1.20); NEUTROPHILS ABSOLUTE (CALC) 50.69 10/3/uL (2.02-8.40); PLATELET ESTIMATE SLT INC (ADEQUATE); RBC MORPHOLOGY NORM (NORMAL); SEGMENTED NEUTROPHIL (0) 81 %; TOTAL NUCLEATED CELLS 100
[2016-08-30 06:02] LABS: INSTRUMENT SERIAL # 35151
[2016-08-30 06:03] LABS: ALLENS TEST Pos; BE (BASE EXCESS) 3.6 MEQ/L (0 +/- 2.5); CARBOXYHEMOGLOBIN 0.3 % (0-3); HCO3 (ACTUAL BICARBONATE) 27.1 MEQ/L (23-27); METHEMOGLOBIN 0.6 % (0-3); O2 CONTENT 14.3 VOL% (18-24); OPERATOR ID 33449; PCO2 (CO2 TENSION) 37 MMHG (35-45); PO2 (O2 TENSION) 211 MMHG (79-93); SAMPLE Arterial; TIDAL VOLUME 550 ML; pH 7.49 (7.37-7.43)
[2016-08-31 03:51] LABS: BASOPHILS 0 %; EOSINOPHILS 0 %; EOSINOPHILS ABSOLUTE 0.01 10/3/uL (0.0-0.53); HEMOGLOBIN 7.1 g/dL (13.6-17.8); IMMATURE GRANULOCYTES 0.4 %; IMMATURE GRANULOCYTES ABSOLUTE 0.09 10/3/uL (0.0-0.11); LYMPHOCYTES 5.7 %; LYMPHOCYTES ABSOLUTE 1.23 10/3/uL (0.67-4.30); MANUAL DIFF NO %; MEAN CORPUS HGB CONC 33.8 g/dL (32.0-36.0); MEAN CORPUSCULAR HEMOGLOB 25.6 pg (26.0-34.0); MEAN CORPUSCULAR VOLUME 75.8 fL (80-100); MEAN PLATELET VOLUME 9.1 fL (9.2-13.0); MONOCYTES 5.3 %; MONOCYTES ABSOLUTE 1.15 10/3/uL (0.21-1.20); NEUTROPHILS 88.6 %; NEUTROPHILS ABSOLUTE 19.16 10/3/uL (2.02-8.40); PLATELET COUNT 420 10/3/uL (150-400); RBC DISTRIBUTION WIDTH 16.4 % (12.0-16.0); RED CELL COUNT 2.77 10/6/uL (4.7-6.1); WHITE BLOOD CELLS 21.6 10/3/uL (4.5-10.5)
[2016-08-31 03:59] LABS: ALLENS TEST Pos; BE (BASE EXCESS) 5.3 MEQ/L (0 +/- 2.5); CARBOXYHEMOGLOBIN 0.3 % (0-3); HCO3 (ACTUAL BICARBONATE) 29.5 MEQ/L (23-27); INSTRUMENT SERIAL # 35151; METHEMOGLOBIN 0.6 % (0-3); MODE CMV; O2 CONTENT 13.9 VOL% (18-24); OPERATOR ID 23712; PCO2 (CO2 TENSION) 42 MMHG (35-45); PO2 (O2 TENSION) 122 MMHG (79-93); SAMPLE Arterial; TIDAL VOLUME 550 ML; pH 7.47 (7.37-7.43)
[2016-08-31 04:01] LABS: BUN (BLOOD UREA NITROGEN) 24 MG/DL (6-23); CALCIUM, SERUM 7.7 MG/DL (8.5-10.4); CHLORIDE, SERUM 94 MMOL/L (96-112); CO2 (CARBON DIOXIDE) 29 MMOL/L (24-34); GFR AFRICAN AMERICAN 117 ML/MIN (>=60); GFR NON AFRICAN AMERICAN 101 ML/MIN (>=60); GLUCOSE, SERUM 168 MG/DL (60-99); POTASSIUM, SERUM 4.6 MMOL/L (3.5-5.3); SODIUM, SERUM 131 MMOL/L (135-148)
[2016-08-31 07:02] LABS: HEMATOCRIT 21.7 % (40.0-51.0); HEMOGLOBIN 7.3 g/dL (13.6-17.8)
[2016-09-01 03:57] LABS: ALLENS TEST Pos; BE (BASE EXCESS) 4.2 MEQ/L (0 +/- 2.5); CARBOXYHEMOGLOBIN 0.8 % (0-3); HCO3 (ACTUAL BICARBONATE) 27.7 MEQ/L (23-27); HEMOBLOGIN CONTENT 7.9 G/DL (14-18); INSTRUMENT SERIAL # 35151; METHEMOGLOBIN 0.6 % (0-3); MODE CMV; O2 CONTENT 11.1 VOL% (18-24); OPERATOR ID 31061; PCO2 (CO2 TENSION) 37 MMHG (35-45); PO2 (O2 TENSION) 133 MMHG (79-93); SAMPLE Arterial; TIDAL VOLUME 550 ML; pH 7.49 (7.37-7.43)
[2016-09-01 04:47] LABS: BASOPHILS 0.1 %; BASOPHILS ABSOLUTE 0.01 10/3/uL (0.0-0.16); EOSINOPHILS 0.8 %; EOSINOPHILS ABSOLUTE 0.09 10/3/uL (0.0-0.53); IMMATURE GRANULOCYTES 0.4 %; IMMATURE GRANULOCYTES ABSOLUTE 0.04 10/3/uL (0.0-0.11); LYMPHOCYTES 12.2 %; LYMPHOCYTES ABSOLUTE 1.32 10/3/uL (0.67-4.30); MEAN CORPUS HGB CONC 33.7 g/dL (32.0-36.0); MEAN CORPUSCULAR HEMOGLOB 25.7 pg (26.0-34.0); MEAN CORPUSCULAR VOLUME 76.2 fL (80-100); MEAN PLATELET VOLUME 9.2 fL (9.2-13.0); MONOCYTES 7.6 %; MONOCYTES ABSOLUTE 0.82 10/3/uL (0.21-1.20); NEUTROPHILS 78.9 %; NEUTROPHILS ABSOLUTE 8.54 10/3/uL (2.02-8.40); PLATELET COUNT 373 10/3/uL (150-400); RBC DISTRIBUTION WIDTH 16.5 % (12.0-16.0); RED CELL COUNT 2.65 10/6/uL (4.7-6.1)
[2016-09-01 04:54] LABS: WHITE BLOOD CELLS 10.8 10/3/uL (4.5-10.5)
[2016-09-01 04:55] LABS: HEMATOCRIT 20.2 % (40.0-51.0); HEMOGLOBIN 6.8 g/dL (13.6-17.8); MANUAL DIFF NO %
[2016-09-01 05:16] LABS: CHLORIDE, SERUM 96 MMOL/L (96-112); CO2 (CARBON DIOXIDE) 29 MMOL/L (24-34); CREATININE 0.47 MG/DL (0.70-1.30); GFR AFRICAN AMERICAN 130 ML/MIN (>=60); GFR NON AFRICAN AMERICAN 112 ML/MIN (>=60); SODIUM, SERUM 132 MMOL/L (135-148)
[2016-09-01 05:18] LABS: BUN (BLOOD UREA NITROGEN) 19 MG/DL (6-23); GLUCOSE, SERUM 210 MG/DL (60-99); PHOSPHORUS, SERUM 2.4 MG/DL (2.5-4.5); POTASSIUM, SERUM 3.3 MMOL/L (3.5-5.3)
[2016-09-01 15:26] LABS: PHOSPHORUS, SERUM 3.8 MG/DL (2.5-4.5)
[2016-09-02 05:39] LABS: BASOPHILS 0.2 %; BASOPHILS ABSOLUTE 0.02 10/3/uL (0.0-0.16); EOSINOPHILS 2.1 %; EOSINOPHILS ABSOLUTE 0.22 10/3/uL (0.0-0.53); IMMATURE GRANULOCYTES 0.3 %; IMMATURE GRANULOCYTES ABSOLUTE 0.03 10/3/uL (0.0-0.11); LYMPHOCYTES 15.3 %; LYMPHOCYTES ABSOLUTE 1.62 10/3/uL (0.67-4.30); MEAN CORPUSCULAR HEMOGLOB 25.6 pg (26.0-34.0); MEAN CORPUSCULAR VOLUME 77.6 fL (80-100); MEAN PLATELET VOLUME 9.2 fL (9.2-13.0); MONOCYTES 9.6 %; MONOCYTES ABSOLUTE 1.01 10/3/uL (0.21-1.20); NEUTROPHILS 72.5 %; NEUTROPHILS ABSOLUTE 7.67 10/3/uL (2.02-8.40); PLATELET COUNT 407 10/3/uL (150-400); RBC DISTRIBUTION WIDTH 16.1 % (12.0-16.0); WHITE BLOOD CELLS 10.6 10/3/uL (4.5-10.5)
[2016-09-02 05:42] LABS: HEMATOCRIT 26.4 % (40.0-51.0); HEMOGLOBIN 8.7 g/dL (13.6-17.8); MANUAL DIFF NO %
[2016-09-02 05:54] LABS: BUN (BLOOD UREA NITROGEN) 14 MG/DL (6-23); CALCIUM, SERUM 8.3 MG/DL (8.5-10.4); CHLORIDE, SERUM 101 MMOL/L (96-112); CO2 (CARBON DIOXIDE) 28 MMOL/L (24-34); CREATININE 0.31 MG/DL (0.70-1.30); GFR AFRICAN AMERICAN 154 ML/MIN (>=60); GFR NON AFRICAN AMERICAN 133 ML/MIN (>=60); GLUCOSE, SERUM 80 MG/DL (60-99); PHOSPHORUS, SERUM 2.3 MG/DL (2.5-4.5); POTASSIUM, SERUM 3.2 MMOL/L (3.5-5.3); SODIUM, SERUM 136 MMOL/L (135-148)
[2016-09-03 04:50] LABS: BASOPHILS 0.5 %; BASOPHILS ABSOLUTE 0.04 10/3/uL (0.0-0.16); EOSINOPHILS 1.7 %; EOSINOPHILS ABSOLUTE 0.13 10/3/uL (0.0-0.53); HEMATOCRIT 24.3 % (40.0-51.0); HEMOGLOBIN 8.1 g/dL (13.6-17.8); IMMATURE GRANULOCYTES 0.3 %; IMMATURE GRANULOCYTES ABSOLUTE 0.02 10/3/uL (0.0-0.11); LYMPHOCYTES 22.6 %; LYMPHOCYTES ABSOLUTE 1.77 10/3/uL (0.67-4.30); MEAN CORPUS HGB CONC 33.3 g/dL (32.0-36.0); MEAN CORPUSCULAR HEMOGLOB 26.3 pg (26.0-34.0); MEAN CORPUSCULAR VOLUME 78.9 fL (80-100); MEAN PLATELET VOLUME 9.1 fL (9.2-13.0); MONOCYTES 11.5 %; NEUTROPHILS 63.4 %; NEUTROPHILS ABSOLUTE 4.98 10/3/uL (2.02-8.40); PLATELET COUNT 400 10/3/uL (150-400); RBC DISTRIBUTION WIDTH 16.2 % (12.0-16.0); RED CELL COUNT 3.08 10/6/uL (4.7-6.1); WHITE BLOOD CELLS 7.8 10/3/uL (4.5-10.5)
[2016-09-03 04:54] LABS: BUN (BLOOD UREA NITROGEN) 12 MG/DL (6-23); CALCIUM, SERUM 7.9 MG/DL (8.5-10.4); CHLORIDE, SERUM 108 MMOL/L (96-112); CO2 (CARBON DIOXIDE) 26 MMOL/L (24-34); GFR AFRICAN AMERICAN 156 ML/MIN (>=60); GFR NON AFRICAN AMERICAN 135 ML/MIN (>=60); GLUCOSE, SERUM 91 MG/DL (60-99); MANUAL DIFF NO %; PHOSPHORUS, SERUM 2.4 MG/DL (2.5-4.5); SODIUM, SERUM 139 MMOL/L (135-148)
[2016-09-03 05:08] LABS: POTASSIUM, SERUM 2.8 MMOL/L (3.5-5.3)
[2016-09-03 06:13] LABS: BASOPHILS 0.4 %; BASOPHILS ABSOLUTE 0.03 10/3/uL (0.0-0.16); EOSINOPHILS 1.7 %; EOSINOPHILS ABSOLUTE 0.12 10/3/uL (0.0-0.53); HEMATOCRIT 23.9 % (40.0-51.0); HEMOGLOBIN 7.9 g/dL (13.6-17.8); IMMATURE GRANULOCYTES 0.3 %; IMMATURE GRANULOCYTES ABSOLUTE 0.02 10/3/uL (0.0-0.11); LYMPHOCYTES 20.8 %; LYMPHOCYTES ABSOLUTE 1.47 10/3/uL (0.67-4.30); MEAN CORPUS HGB CONC 33.1 g/dL (32.0-36.0); MEAN CORPUSCULAR HEMOGLOB 25.9 pg (26.0-34.0); MEAN CORPUSCULAR VOLUME 78.4 fL (80-100); MONOCYTES 10.8 %; MONOCYTES ABSOLUTE 0.76 10/3/uL (0.21-1.20); NEUTROPHILS ABSOLUTE 4.66 10/3/uL (2.02-8.40); PLATELET COUNT 403 10/3/uL (150-400); RBC DISTRIBUTION WIDTH 16.2 % (12.0-16.0); RED CELL COUNT 3.05 10/6/uL (4.7-6.1); WHITE BLOOD CELLS 7.1 10/3/uL (4.5-10.5)
[2016-09-03 06:15] LABS: MANUAL DIFF NO %
[2016-09-03 06:28] LABS: BUN (BLOOD UREA NITROGEN) 13 MG/DL (6-23); CHLORIDE, SERUM 106 MMOL/L (96-112); CO2 (CARBON DIOXIDE) 29 MMOL/L (24-34); CREATININE 0.32 MG/DL (0.70-1.30); GFR AFRICAN AMERICAN 152 ML/MIN (>=60); GFR NON AFRICAN AMERICAN 131 ML/MIN (>=60); GLUCOSE, SERUM 108 MG/DL (60-99); PHOSPHORUS, SERUM 2.2 MG/DL (2.5-4.5); SODIUM, SERUM 140 MMOL/L (135-148)
[2016-09-03 06:29] LABS: POTASSIUM, SERUM 2.8 MMOL/L (3.5-5.3)
[2016-09-04 03:56] LABS: BASOPHILS 0.5 %; BASOPHILS ABSOLUTE 0.04 10/3/uL (0.0-0.16); EOSINOPHILS 3.9 %; HEMATOCRIT 23.1 % (40.0-51.0); HEMOGLOBIN 7.6 g/dL (13.6-17.8); IMMATURE GRANULOCYTES 0.3 %; IMMATURE GRANULOCYTES ABSOLUTE 0.02 10/3/uL (0.0-0.11); LYMPHOCYTES 21.8 %; MEAN CORPUS HGB CONC 32.9 g/dL (32.0-36.0); MEAN CORPUSCULAR HEMOGLOB 26.2 pg (26.0-34.0); MEAN CORPUSCULAR VOLUME 79.7 fL (80-100); MEAN PLATELET VOLUME 8.5 fL (9.2-13.0); MONOCYTES 10.1 %; MONOCYTES ABSOLUTE 0.79 10/3/uL (0.21-1.20); NEUTROPHILS 63.4 %; NEUTROPHILS ABSOLUTE 4.94 10/3/uL (2.02-8.40); PLATELET COUNT 342 10/3/uL (150-400); RBC DISTRIBUTION WIDTH 16.3 % (12.0-16.0); WHITE BLOOD CELLS 7.8 10/3/uL (4.5-10.5)
[2016-09-04 03:58] LABS: MANUAL DIFF NO %
[2016-09-04 04:24] LABS: A/G RATIO 0.3 (0.7-1.9); ALBUMIN 1.4 G/DL (3.5-5.0); CALCIUM, SERUM 7.7 MG/DL (8.5-10.4); CHLORIDE, SERUM 112 MMOL/L (96-112); CREATININE 0.31 MG/DL (0.70-1.30); GFR AFRICAN AMERICAN 154 ML/MIN (>=60); GFR NON AFRICAN AMERICAN 133 ML/MIN (>=60); GLOBULIN 4.7 G/DL (2.5-4.1); PHOSPHORUS, SERUM 1.9 MG/DL (2.5-4.5); POTASSIUM, SERUM 3.4 MMOL/L (3.5-5.3); SGOT(AST) 36 U/L (5-40); SGPT(ALT) 61 U/L (5-65); SODIUM, SERUM 142 MMOL/L (135-148); TOTAL BILIRUBIN 0.3 MG/DL (0-1.2); TOTAL PROTEIN 6.1 G/DL (6.0-8.5)
[2016-09-04 04:25] LABS: ALKALINE PHOSPHATASE 317 U/L (45-117); BUN (BLOOD UREA NITROGEN) 9 MG/DL (6-23); CO2 (CARBON DIOXIDE) 23 MMOL/L (24-34); GLUCOSE, SERUM 145 MG/DL (60-99)
[2016-09-05 03:41] LABS: BASOPHILS 0.9 %; BASOPHILS ABSOLUTE 0.07 10/3/uL (0.0-0.16); EOSINOPHILS 4.5 %; EOSINOPHILS ABSOLUTE 0.34 10/3/uL (0.0-0.53); HEMATOCRIT 25.5 % (40.0-51.0); HEMOGLOBIN 8.3 g/dL (13.6-17.8); IMMATURE GRANULOCYTES 0.4 %; IMMATURE GRANULOCYTES ABSOLUTE 0.03 10/3/uL (0.0-0.11); LYMPHOCYTES 30.8 %; LYMPHOCYTES ABSOLUTE 2.32 10/3/uL (0.67-4.30); MANUAL DIFF NO %; MEAN CORPUS HGB CONC 32.5 g/dL (32.0-36.0); MEAN CORPUSCULAR HEMOGLOB 26.4 pg (26.0-34.0); MEAN CORPUSCULAR VOLUME 81.2 fL (80-100); MEAN PLATELET VOLUME 8.8 fL (9.2-13.0); MONOCYTES 8.6 %; MONOCYTES ABSOLUTE 0.65 10/3/uL (0.21-1.20); NEUTROPHILS 54.8 %; NEUTROPHILS ABSOLUTE 4.12 10/3/uL (2.02-8.40); PLATELET COUNT 420 10/3/uL (150-400); RBC DISTRIBUTION WIDTH 16.5 % (12.0-16.0); RED CELL COUNT 3.14 10/6/uL (4.7-6.1); WHITE BLOOD CELLS 7.5 10/3/uL (4.5-10.5)
[2016-09-05 04:04] LABS: ALBUMIN 1.6 G/DL (3.5-5.0); BUN (BLOOD UREA NITROGEN) 7 MG/DL (6-23); CALCIUM, SERUM 7.7 MG/DL (8.5-10.4); CHLORIDE, SERUM 111 MMOL/L (96-112); CO2 (CARBON DIOXIDE) 27 MMOL/L (24-34); CREATININE 0.34 MG/DL (0.70-1.30); DILANTIN (PHENYTOIN) 7.2 MCG/ML (10.0-20.0); GFR AFRICAN AMERICAN 148 ML/MIN (>=60); GFR NON AFRICAN AMERICAN 128 ML/MIN (>=60); GLUCOSE, SERUM 99 MG/DL (60-99); PHOSPHORUS, SERUM 1.8 MG/DL (2.5-4.5); POTASSIUM, SERUM 4.1 MMOL/L (3.5-5.3); SODIUM, SERUM 143 MMOL/L (135-148); VANCOMYCIN TROUGH 18.9 MCG/ML (10.0-20.0)
[2016-09-05 04:30] LABS: PROCALCITONIN 0.45 ng/mL (<0.5)
[2016-09-05 19:50] LABS: ASCORBIC ACID (UR NOT ORDER) 40 (NEG); BILIRUBIN, URINE NEGATIVE (NEG); KETONE, URINE NEGATIVE (NEG); LEUKOCYTE ESTERASE(NOT OR LARGE (NEG); WBC (NOT ORDERED) (RFLEX) 147 (0-5)
[2016-09-06 04:53] LABS: BASOPHILS 0.7 %; BASOPHILS ABSOLUTE 0.04 10/3/uL (0.0-0.16); EOSINOPHILS 6.9 %; EOSINOPHILS ABSOLUTE 0.37 10/3/uL (0.0-0.53); HEMATOCRIT 24.6 % (40.0-51.0); IMMATURE GRANULOCYTES 0.6 %; IMMATURE GRANULOCYTES ABSOLUTE 0.03 10/3/uL (0.0-0.11); LYMPHOCYTES 27.9 %; LYMPHOCYTES ABSOLUTE 1.49 10/3/uL (0.67-4.30); MEAN CORPUS HGB CONC 32.5 g/dL (32.0-36.0); MEAN CORPUSCULAR HEMOGLOB 26.2 pg (26.0-34.0); MEAN CORPUSCULAR VOLUME 80.7 fL (80-100); MONOCYTES 9.3 %; NEUTROPHILS 54.6 %; NEUTROPHILS ABSOLUTE 2.92 10/3/uL (2.02-8.40); PLATELET COUNT 395 10/3/uL (150-400); RBC DISTRIBUTION WIDTH 16.6 % (12.0-16.0); RED CELL COUNT 3.05 10/6/uL (4.7-6.1); WHITE BLOOD CELLS 5.4 10/3/uL (4.5-10.5)
[2016-09-06 04:55] LABS: MANUAL DIFF NO %
[2016-09-06 05:03] LABS: ALBUMIN 1.5 G/DL (3.5-5.0); CALCIUM, SERUM 7.7 MG/DL (8.5-10.4); CHLORIDE, SERUM 105 MMOL/L (96-112); CO2 (CARBON DIOXIDE) 31 MMOL/L (24-34); CREATININE 0.31 MG/DL (0.70-1.30); GFR AFRICAN AMERICAN 154 ML/MIN (>=60); GFR NON AFRICAN AMERICAN 133 ML/MIN (>=60); GLUCOSE, SERUM 111 MG/DL (60-99); POTASSIUM, SERUM 3.4 MMOL/L (3.5-5.3); SODIUM, SERUM 142 MMOL/L (135-148)
[2016-09-06 05:04] LABS: BUN (BLOOD UREA NITROGEN) 15 MG/DL (6-23); PHOSPHORUS, SERUM 2.4 MG/DL (2.5-4.5)
[2016-09-07 04:20] LABS: BASOPHILS 0.4 %; BASOPHILS ABSOLUTE 0.03 10/3/uL (0.0-0.16); EOSINOPHILS 4.2 %; EOSINOPHILS ABSOLUTE 0.28 10/3/uL (0.0-0.53); HEMOGLOBIN 7.8 g/dL (13.6-17.8); IMMATURE GRANULOCYTES 0.1 %; IMMATURE GRANULOCYTES ABSOLUTE 0.01 10/3/uL (0.0-0.11); LYMPHOCYTES 17.5 %; LYMPHOCYTES ABSOLUTE 1.18 10/3/uL (0.67-4.30); MEAN CORPUS HGB CONC 32.5 g/dL (32.0-36.0); MEAN CORPUSCULAR HEMOGLOB 26.3 pg (26.0-34.0); MEAN CORPUSCULAR VOLUME 80.8 fL (80-100); MEAN PLATELET VOLUME 9.1 fL (9.2-13.0); MONOCYTES 7.9 %; MONOCYTES ABSOLUTE 0.53 10/3/uL (0.21-1.20); NEUTROPHILS 69.9 %; NEUTROPHILS ABSOLUTE 4.71 10/3/uL (2.02-8.40); PLATELET COUNT 370 10/3/uL (150-400); RBC DISTRIBUTION WIDTH 16.7 % (12.0-16.0); RED CELL COUNT 2.97 10/6/uL (4.7-6.1); WHITE BLOOD CELLS 6.7 10/3/uL (4.5-10.5)
[2016-09-07 04:21] LABS: MANUAL DIFF NO %
[2016-09-07 04:46] LABS: ALBUMIN 1.5 G/DL (3.5-5.0); BUN (BLOOD UREA NITROGEN) 15 MG/DL (6-23); CALCIUM, SERUM 7.4 MG/DL (8.5-10.4); CHLORIDE, SERUM 107 MMOL/L (96-112); CO2 (CARBON DIOXIDE) 32 MMOL/L (24-34); CREATININE 0.31 MG/DL (0.70-1.30); DILANTIN (PHENYTOIN) 18.4 MCG/ML (10.0-20.0); GFR AFRICAN AMERICAN 154 ML/MIN (>=60); GFR NON AFRICAN AMERICAN 133 ML/MIN (>=60); GLUCOSE, SERUM 123 MG/DL (60-99); PHOSPHORUS, SERUM 1.7 MG/DL (2.5-4.5); POTASSIUM, SERUM 3.6 MMOL/L (3.5-5.3); SODIUM, SERUM 141 MMOL/L (135-148)
[2016-09-08 03:29] LABS: BASOPHILS 0.8 %; BASOPHILS ABSOLUTE 0.06 10/3/uL (0.0-0.16); EOSINOPHILS 5.1 %; EOSINOPHILS ABSOLUTE 0.37 10/3/uL (0.0-0.53); HEMATOCRIT 27.7 % (40.0-51.0); HEMOGLOBIN 9.1 g/dL (13.6-17.8); IMMATURE GRANULOCYTES 0.3 %; IMMATURE GRANULOCYTES ABSOLUTE 0.02 10/3/uL (0.0-0.11); LYMPHOCYTES 20.6 %; LYMPHOCYTES ABSOLUTE 1.49 10/3/uL (0.67-4.30); MANUAL DIFF NO %; MEAN CORPUS HGB CONC 32.9 g/dL (32.0-36.0); MEAN CORPUSCULAR HEMOGLOB 26.5 pg (26.0-34.0); MEAN CORPUSCULAR VOLUME 80.8 fL (80-100); MEAN PLATELET VOLUME 9.3 fL (9.2-13.0); MONOCYTES 7.2 %; MONOCYTES ABSOLUTE 0.52 10/3/uL (0.21-1.20); NEUTROPHILS ABSOLUTE 4.79 10/3/uL (2.02-8.40); PLATELET COUNT 460 10/3/uL (150-400); RBC DISTRIBUTION WIDTH 16.6 % (12.0-16.0); RED CELL COUNT 3.43 10/6/uL (4.7-6.1); WHITE BLOOD CELLS 7.3 10/3/uL (4.5-10.5)
[2016-09-08 03:50] LABS: ALBUMIN 1.7 G/DL (3.5-5.0); CALCIUM, SERUM 7.7 MG/DL (8.5-10.4); CHLORIDE, SERUM 108 MMOL/L (96-112); CO2 (CARBON DIOXIDE) 29 MMOL/L (24-34); CREATININE 0.29 MG/DL (0.70-1.30); GFR AFRICAN AMERICAN 158 ML/MIN (>=60); GFR NON AFRICAN AMERICAN 136 ML/MIN (>=60); PHOSPHORUS, SERUM 1.6 MG/DL (2.5-4.5); POTASSIUM, SERUM 3.5 MMOL/L (3.5-5.3); SODIUM, SERUM 144 MMOL/L (135-148); VANCOMYCIN TROUGH 12.2 MCG/ML (10.0-20.0)
[2016-09-08 03:51] LABS: BUN (BLOOD UREA NITROGEN) 11 MG/DL (6-23); GLUCOSE, SERUM 84 MG/DL (60-99)
[2016-09-09 09:57] LABS: BASOPHILS 0.9 %; BASOPHILS ABSOLUTE 0.06 10/3/uL (0.0-0.16); EOSINOPHILS 5.5 %; EOSINOPHILS ABSOLUTE 0.39 10/3/uL (0.0-0.53); HEMATOCRIT 26.2 % (40.0-51.0); HEMOGLOBIN 8.6 g/dL (13.6-17.8); IMMATURE GRANULOCYTES 0.3 %; IMMATURE GRANULOCYTES ABSOLUTE 0.02 10/3/uL (0.0-0.11); LYMPHOCYTES 19.9 %; MEAN CORPUS HGB CONC 32.8 g/dL (32.0-36.0); MEAN CORPUSCULAR VOLUME 79.2 fL (80-100); MEAN PLATELET VOLUME 9.6 fL (9.2-13.0); MONOCYTES 7.4 %; MONOCYTES ABSOLUTE 0.52 10/3/uL (0.21-1.20); NEUTROPHILS ABSOLUTE 4.64 10/3/uL (2.02-8.40); PLATELET COUNT 471 10/3/uL (150-400); RBC DISTRIBUTION WIDTH 16.9 % (12.0-16.0); RED CELL COUNT 3.31 10/6/uL (4.7-6.1)
[2016-09-09 10:01] LABS: MANUAL DIFF NO %
[2016-09-09 10:16] LABS: ALBUMIN 1.6 G/DL (3.5-5.0); BUN (BLOOD UREA NITROGEN) 12 MG/DL (6-23); CALCIUM, SERUM 7.8 MG/DL (8.5-10.4); CHLORIDE, SERUM 111 MMOL/L (96-112); CO2 (CARBON DIOXIDE) 25 MMOL/L (24-34); CREATININE 0.27 MG/DL (0.70-1.30); GFR AFRICAN AMERICAN 163 ML/MIN (>=60); GFR NON AFRICAN AMERICAN 140 ML/MIN (>=60); GLUCOSE, SERUM 141 MG/DL (60-99); PHOSPHORUS, SERUM 1.8 MG/DL (2.5-4.5); POTASSIUM, SERUM 5.3 MMOL/L (3.5-5.3); SODIUM, SERUM 142 MMOL/L (135-148)
[2016-09-10 04:54] LABS: BASOPHILS 1.1 %; BASOPHILS ABSOLUTE 0.06 10/3/uL (0.0-0.16); EOSINOPHILS ABSOLUTE 0.42 10/3/uL (0.0-0.53); HEMOGLOBIN 8.2 g/dL (13.6-17.8); IMMATURE GRANULOCYTES 0.2 %; IMMATURE GRANULOCYTES ABSOLUTE 0.01 10/3/uL (0.0-0.11); LYMPHOCYTES 27.8 %; LYMPHOCYTES ABSOLUTE 1.46 10/3/uL (0.67-4.30); MEAN CORPUS HGB CONC 32.8 g/dL (32.0-36.0); MEAN CORPUSCULAR HEMOGLOB 26.3 pg (26.0-34.0); MEAN CORPUSCULAR VOLUME 80.1 fL (80-100); MEAN PLATELET VOLUME 9.6 fL (9.2-13.0); MONOCYTES 10.3 %; MONOCYTES ABSOLUTE 0.54 10/3/uL (0.21-1.20); NEUTROPHILS 52.6 %; NEUTROPHILS ABSOLUTE 2.77 10/3/uL (2.02-8.40); PLATELET COUNT 497 10/3/uL (150-400); RBC DISTRIBUTION WIDTH 17.2 % (12.0-16.0); RED CELL COUNT 3.12 10/6/uL (4.7-6.1); WHITE BLOOD CELLS 5.3 10/3/uL (4.5-10.5)
[2016-09-10 04:57] LABS: MANUAL DIFF NO %
[2016-09-10 05:04] LABS: A/G RATIO 0.3 (0.7-1.9); ALBUMIN 1.5 G/DL (3.5-5.0); BUN (BLOOD UREA NITROGEN) 12 MG/DL (6-23); CHLORIDE, SERUM 111 MMOL/L (96-112); CO2 (CARBON DIOXIDE) 27 MMOL/L (24-34); CREATININE 0.27 MG/DL (0.70-1.30); GFR AFRICAN AMERICAN 163 ML/MIN (>=60); GFR NON AFRICAN AMERICAN 140 ML/MIN (>=60); GLUCOSE, SERUM 124 MG/DL (60-99); POTASSIUM, SERUM 5.4 MMOL/L (3.5-5.3); SGPT(ALT) 29 U/L (5-65); SODIUM, SERUM 141 MMOL/L (135-148); TOTAL BILIRUBIN 0.2 MG/DL (0-1.2); TOTAL PROTEIN 6.5 G/DL (6.0-8.5)
[2016-09-10 05:05] LABS: ALKALINE PHOSPHATASE 218 U/L (45-117); CALCIUM, SERUM 6.3 MG/DL (8.5-10.4); SGOT(AST) 29 U/L (5-40)
[2016-09-11 06:36] LABS: PROCALCITONIN 0.05 ng/mL (<0.5)
[2016-09-11 09:49] LABS: BUN (BLOOD UREA NITROGEN) 12 MG/DL (6-23); CALCIUM, SERUM 8.5 MG/DL (8.5-10.4); CHLORIDE, SERUM 105 MMOL/L (96-112); CO2 (CARBON DIOXIDE) 30 MMOL/L (24-34); CREATININE 0.29 MG/DL (0.70-1.30); GFR AFRICAN AMERICAN 158 ML/MIN (>=60); GFR NON AFRICAN AMERICAN 136 ML/MIN (>=60); GLUCOSE, SERUM 76 MG/DL (60-99); PHOSPHORUS, SERUM 1.5 MG/DL (2.5-4.5); POTASSIUM, SERUM 4.1 MMOL/L (3.5-5.3); SODIUM, SERUM 136 MMOL/L (135-148)
[2016-09-12 09:01] LABS: BASOPHILS 0.5 %; BASOPHILS ABSOLUTE 0.05 10/3/uL (0.0-0.16); EOSINOPHILS 2.6 %; EOSINOPHILS ABSOLUTE 0.26 10/3/uL (0.0-0.53); HEMATOCRIT 26.6 % (40.0-51.0); HEMOGLOBIN 8.7 g/dL (13.6-17.8); IMMATURE GRANULOCYTES 0.1 %; IMMATURE GRANULOCYTES ABSOLUTE 0.01 10/3/uL (0.0-0.11); LYMPHOCYTES 23.3 %; LYMPHOCYTES ABSOLUTE 2.29 10/3/uL (0.67-4.30); MEAN CORPUS HGB CONC 32.7 g/dL (32.0-36.0); MEAN CORPUSCULAR HEMOGLOB 25.8 pg (26.0-34.0); MEAN CORPUSCULAR VOLUME 78.9 fL (80-100); MEAN PLATELET VOLUME 9.3 fL (9.2-13.0); MONOCYTES 5.3 %; MONOCYTES ABSOLUTE 0.52 10/3/uL (0.21-1.20); NEUTROPHILS 68.2 %; NEUTROPHILS ABSOLUTE 6.69 10/3/uL (2.02-8.40); PLATELET COUNT 519 10/3/uL (150-400); RBC DISTRIBUTION WIDTH 17.3 % (12.0-16.0); RED CELL COUNT 3.37 10/6/uL (4.7-6.1)
[2016-09-12 09:02] LABS: MANUAL DIFF NO %; WHITE BLOOD CELLS 9.8 10/3/uL (4.5-10.5)
[2016-09-12 09:07] LABS: BUN (BLOOD UREA NITROGEN) 14 MG/DL (6-23); CHLORIDE, SERUM 100 MMOL/L (96-112); CO2 (CARBON DIOXIDE) 32 MMOL/L (24-34); CREATININE 0.32 MG/DL (0.70-1.30); GFR AFRICAN AMERICAN 152 ML/MIN (>=60); GFR NON AFRICAN AMERICAN 131 ML/MIN (>=60); GLUCOSE, SERUM 64 MG/DL (60-99); POTASSIUM, SERUM 4.3 MMOL/L (3.5-5.3); SODIUM, SERUM 136 MMOL/L (135-148)
[2016-09-12 09:13] LABS: INTERNATIONAL NORMAL RATI 1.3 UNITS (-); PARTIAL THROMBO TIME 42.3 SEC (22.5-37.2)
[2016-09-12 09:16] LABS: PROTIME (NOT ORD) 15.7 SEC (12.0-14.5)
== END 2016-09-14 16:30 | disposition home health service (06) | DRG 870 ==
LOC: ER 22:44 → CCU 08-30 00:59 → 5NO 09-08 19:18
PROVIDERS: Hospitalist; Internal Medicine; Internal Medicine Critical Care Medicine; Internal Medicine Geriatric Medicine; Internal Medicine Infectious Disease; Nurse Practitioner Acute Care; Psychiatry & Neurology Neurology; Radiology Vascular & Interventional Radiology
PROC: 05H533Z Insertion of Infusion Device into Right Subclavian Vein, Percutaneous Approach (ICD-10-PCS; 2016-08-29)
PROC: 5A1955Z Respiratory Ventilation, Greater than 96 Consecutive Hours (ICD-10-PCS; 2016-08-29)
PROC: 0W9930Z Drainage of Right Pleural Cavity with Drainage Device, Percutaneous Approach (ICD-10-PCS; principal; 2016-08-30)
PROC: 0BH17EZ Insertion of Endotracheal Airway into Trachea, Via Natural or Artificial Opening (ICD-10-PCS; 2016-08-30)
PROC: 30233N1 Transfusion of Nonautologous Red Blood Cells into Peripheral Vein, Percutaneous Approach (ICD-10-PCS; 2016-09-01)
PROC: 02HV33Z Insertion of Infusion Device into Superior Vena Cava, Percutaneous Approach (ICD-10-PCS; 2016-09-06)
PROC: 4A02X4A Measurement of Cardiac Electrical Activity, Guidance, External Approach (ICD-10-PCS; 2016-09-06)
PROC: 0DH63UZ Insertion of Feeding Device into Stomach, Percutaneous Approach (ICD-10-PCS; 2016-09-12)
DX: A41.9 Sepsis, unspecified organism (principal); R65.21 Severe sepsis with septic shock; E43 Unspecified severe protein-calorie malnutrition; J18.9 Pneumonia, unspecified organism; L89.214 Pressure ulcer of right hip, stage 4; G93.41 Metabolic encephalopathy; L89.224 Pressure ulcer of left hip, stage 4; J96.01 Acute respiratory failure with hypoxia; J96.02 Acute respiratory failure with hypercapnia; L89.153 Pressure ulcer of sacral region, stage 3; L89.513 Pressure ulcer of right ankle, stage 3; J95.811 Postprocedural pneumothorax; R64 Cachexia; Z68.1 Body mass index [BMI] 19.9 or less, adult; N39.0 Urinary tract infection, site not specified; T76.01XA Adult neglect or abandonment, suspected, initial encounter; E86.9 Volume depletion, unspecified; G40.909 Epilepsy, unspecified, not intractable, without status epilepticus; Z87.820 Personal history of traumatic brain injury; Z51.5 Encounter for palliative care; Z87.440 Personal history of urinary (tract) infections; B96.1 Klebsiella pneumoniae [K. pneumoniae] as the cause of diseases classified elsewhere; D64.9 Anemia, unspecified; L89.121 Pressure ulcer of left upper back, stage 1
CPT/HCPCS: 31720; 36415; 36569; 36600; 49440; 71010; 74000; 74150; 80048; 80053; 80069; 80177; 80185; 80202; 81001; 82271; 82533; 82805; 82962; 83605; 83735; 84100; 84132; 84134; 84145; 85014; 85018; 85025; 85610; 85730; 86850; 86900; 86901; 86920; 87040; 87070; 87077; 87086; 87184; 87186; 87205; 87449; 87493; 87493-59; 87641; 93005; 94002; 94003; 94640; 94660; 94770; 95816; 96365; 96367; 96375; 99291; 99292; A9270-GY; C1751; C1769; C1894; C9113; J0456; J0692; J1953; J2185; J2370; J2543; J2710; J2997; J3010; J3370; J3475; P9016; P9047; Q2009

== ENCOUNTER 2016-09-23 10:56 | Emergency (ER) | payer MEDICARE, OTHER ==
[~2016-09-23 10:56] MED LIST changes: +ATIVAN2 MG PO; +ATV1 PO; +KEPPRAUDL PO; +LIOR10 PO; +PHENY125S PO; +PRIN5 PO; +PROTONIX PO; +ROXICODONE15 MG PO; +T PO
== END 2016-09-23 14:38 | disposition expired ==
LOC: ER 10:56
DX: I46.9 Cardiac arrest, cause unspecified (principal)
CPT/HCPCS: 99285